=== PATIENT | female | born 1960 | race American Indian/Alaskan Native ===

== ENCOUNTER 2019-05-21 15:35 | Emergency (ER) | payer MEDICARE ==
[2019-05-21] MEDS ORDERED: HYDROcodone/ACETAMINOPHEN 5-325 MG TAB PO ONE (16:13)
[2019-05-21] MEDS ORDERED: IBUPROFEN 800 MG TAB PO ONE (16:14)
--- NOTE | 2019-05-21 16:46 | XRay Report ---
LEFT HIP 2 VIEWS INDICATION / CLINICAL INFORMATION: pain, injury. COMPARISON: None available. FINDINGS: Detail is suboptimal due to overlying soft tissue. No definite skeletal abnormality is seen. Signer Name: Emmanuel Sutton MD FACKannan Signed: 05/21/2019 4:42 PM Workstation Name: [id number]
--- NOTE | 2019-05-21 20:07 | Cat Scan Report ---
CT pelvis wo con INDICATION / CLINICAL INFORMATION: injury, right hip pain. TECHNIQUE: Axial CT imaging of right hip/pelvis was obtained without contrast. Coronal and sagittal reformatted imaging obtained and reviewed. All CT scans at this location are performed using CT dose reduction f or ALARA by means of automated exposure control. COMPARISON: Radiographs of the right hip, 05/21/2019 FINDINGS: No evidence of pelvic fracture. More specifically, the right hip and right hemipelvis are intact. The re is mild to moderate degenerative change in both hips. No soft tissue abnormality or hemarthrosis i dentified. IMPRESSION: 1. No evidence of pelvic fracture. More specifically no evidence of right hip fracture. 2. Mild to moderate degenerative changes present in the hips bilaterally. Signer Name: Christiane Montgomery MD Signed: 05/21/2019 8:02 PM Workstation Name: [id number]
[2019-05-21 20:19] VITALS: BP 156/75
--- NOTE | 2019-05-21 20:47 | Emergency Department Report ---
ED Extremity Problem HPI - General Chief complaint: Weakness Stated complaint: R SIDE PAIN Time Seen by Provider: 05/21/19 16:12 Source: patient, EMS Mode of arrival: Ambulatory Limitations: No Limitations - History of Present Illness Initial comments: 59-year-old female presents to ED with right hip and knee pain following mechanical fall. Patient states she stepped in some kind of hole in the ground. Patient denies LOC or head injury. Denies headache. MD Complaint: extremity pain -: This afternoon Location: right, lower extremity Severity scale (0 -10): 0 Quality: aching Consistency: constant Improves with: immobilization Worsens with: weight bearing, walking Associated Symptoms: denies other symptoms. denies: chest pain, shortness of breath - Related Data Home Medications Medication Instructions Recorded Confirmed Last Taken Buprenorphine HCl [Belbuca] 450 mcg BC QPM 05/21/19 05/21/19 05/18/19 Carvedilol [Coreg] 25 mg PO TID 05/21/19 05/21/19 05/21/19 Duloxetine HCl 60 mg PO QDAY 05/21/19 05/21/19 05/21/19 Insulin NPH Human Isophane 15 unit SQ QPM 05/21/19 05/21/19 05/21/19 [HumuLIN N Kwikpen] Potassium Chloride [K-Dur] 10 meq PO QDAY 05/21/19 05/21/19 05/21/19 Pregabalin [Lyrica] 300 mg PO BID 05/21/19 05/21/19 05/21/19 Rosuvastatin Calcium [Crestor] 20 mg PO QDAY 05/21/19 05/21/19 05/21/19 Sacubitril/Valsartan [Entresto 24 1 each PO QDAY 05/21/19 05/21/19 05/21/19 - 26 mg] Spironolactone [Aldactone] 25 mg PO QDAY 05/21/19 05/21/19 05/21/19 Topiramate [Topamax] 200 mg PO BID 05/21/19 05/21/19 05/21/19 Previous Rx's Medication Instructions Recorded Last Taken Type Naproxen [Naprosyn] 500 mg PO BID #20 tablet 05/21/19 Unknown Rx traMADol [Ultram] 50 mg PO Q6HR PRN #7 tablet 05/21/19 Unknown Rx Allergies Allergy/AdvReac Type Severity Reaction Status Date / Time No Known Allergies Allergy Unverified 05/21/19 18:25 ED Review of Systems ROS: Stated complaint: R SIDE PAIN Other details as noted in HPI Comment: All other systems reviewed and negative Respiratory: denies: shortness of breath Cardiovascular: denies: chest pain Musculoskeletal: as per HPI ED Past Medical Hx - Past Medical History Hx Hypertension: Yes Hx CVA: Yes (11/29) Hx Diabetes: Yes Hx Renal Disease: No Hx Arthritis: No Hx Seizures: No Hx Asthma: No - Surgical History Hx Pacemaker: No - Social History Smoking Status: Never Smoker Substance Use Type: None - Medications Home Medications: Home Medications Medication Instructions Recorded Confirmed Last Taken Type Buprenorphine HCl [Belbuca] 450 mcg BC QPM 05/21/19 05/21/19 05/18/19 History Carvedilol [Coreg] 25 mg PO TID 05/21/19 05/21/19 05/21/19 History Duloxetine HCl 60 mg PO QDAY 05/21/19 05/21/19 05/21/19 History Insulin NPH Human Isophane 15 unit SQ QPM 05/21/19 05/21/19 05/21/19 History [HumuLIN N Kwikpen] Naproxen [Naprosyn] 500 mg PO BID #20 tablet 05/21/19 Unknown Rx Potassium Chloride [K-Dur] 10 meq PO QDAY 05/21/19 05/21/19 05/21/19 History Pregabalin [Lyrica] 300 mg PO BID 05/21/19 05/21/19 05/21/19 History Rosuvastatin Calcium [Crestor] 20 mg PO QDAY 05/21/19 05/21/19 05/21/19 History Sacubitril/Valsartan [Entresto 24 1 each PO QDAY 05/21/19 05/21/19 05/21/19 History - 26 mg] Spironolactone [Aldactone] 25 mg PO QDAY 05/21/19 05/21/19 05/21/19 History Topiramate [Topamax] 200 mg PO BID 05/21/19 05/21/19 05/21/19 History traMADol [Ultram] 50 mg PO Q6HR PRN #7 tablet 05/21/19 Unknown Rx ED Physical Exam - General Limitations: No Limitations General appearance: alert, in no apparent distress - Head Head exam: Present: atraumatic, normocephalic - Eye Eye exam: Present: normal appearance, EOMI - ENT ENT exam: Present: mucous membranes moist - Neck Neck exam: Present: normal inspection, full ROM - Respiratory Respiratory exam: Present: normal lung sounds bilaterally. Absent: respiratory distress - Cardiovascular Cardiovascular Exam: Present: regular rate, normal rhythm - GI/Abdominal GI/Abdominal exam: Present: soft. Absent: distended, tenderness - Extremities Exam Extremities exam: Present: other (tenderness to right hip; right knee ROM slightly decreased secndary to pain, no swelling or deformity; no swellinig or deformity to right ankle, ROM intact; upper extremities normal and nontender) - Neurological Exam Neurological exam: Present: alert, oriented X3, CN II-XII intact. Absent: motor sensory deficit - Psychiatric Psychiatric exam: Present: normal affect, normal mood - Skin Skin exam: Present: warm, dry, intact, normal color ED Course Vital Signs 05/21/19 05/21/19 05/21/19 15:41 17:21 20:19 Temperature 98.2 F Pulse Rate 62 87 87 Respiratory 17 19 18 Rate Blood Pressure 122/61 Blood Pressure 122/61 130/70 156/75 [Left] O2 Sat by Pulse 97 99 98 Oximetry ED Medical Decision Making - Radiology Data Radiology results: report reviewed, image reviewed - Medical Decision Making CT pelvis shows no fracture of the hip. Pain medication given, and patient feel much better. Able to stand on her own bear weight on the right leg, able to flex and extend at the knee. Ortho f/u given . Return precautions given. - Differential Diagnosis fracture, contusion Critical care attestation.: If time is entered above; I have spent that time in minutes in the direct care of this critically ill patient, excluding procedure time. ED Disposition Clinical Impression: Fall, Contusion of right hip, Contusion of right knee Disposition: TO HOME OR SELFCARE Is pt being admited?: No Condition: Stable Instructions: Contusion in Adults (ED) Prescriptions: Naproxen [Naprosyn] 500 mg PO BID #20 tablet traMADol [Ultram] 50 mg PO Q6HR PRN #7 tablet PRN Reason: Pain Referrals: PRIMARY CARE, [Primary Care Provider] - 3-5 Days GUME LINO MD [Staff Physician] - 3-5 Days Time of Disposition: 20:47
== END 2019-05-21 21:43 | disposition home or self-care (01) ==
LOC: ED 15:35
DX: S70.01XA Contusion of right hip, initial encounter (principal); S80.01XA Contusion of right knee, initial encounter; I10 Essential (primary) hypertension; E11.9 Type 2 diabetes mellitus without complications; W18.30XA Fall on same level, unspecified, initial encounter; Y93.89 Activity, other specified; Y92.89 Other specified places as the place of occurrence of the external cause; Y99.8 Other external cause status
CPT/HCPCS: 72192

== ENCOUNTER 2019-06-14 13:03 | Emergency (ER) | payer MEDICARE ==
--- NOTE | 2019-06-14 13:18 | Emergency Department Report ---
Blank Doc - Documentation Documentation: 59-year-old female berto twas sent by PCP for chest pains and SOB with radiation to right arm. This initial assessment/diagnostic orders/clinical plan/treatment(s) is/are subject to change based on patient's health status, clinical progression and re- assessment by fellow clinical providers in the ED. Further treatment and workup at subsequent clinical providers discretion. Patient/guardians urged not to elope from the ED as their condition may be serious if not clinically assessed and managed. Initial orders include: 1- Patient sent to MAIN ED for further evaluation and treatment 2- labs 3- CXR 4- EKG
--- NOTE | 2019-06-14 14:16 | XRay Report ---
CHEST 2 VIEWS INDICATION: Chest Pain. COMPARISON: No recent comparison. FINDINGS: Support devices: Pacer leads in the right heart. Heart: Mild cardiomegaly considering low lung volumes. Pulmonary vasculature: Central vascular congestion. Lungs/pleura: No acute air space or interstitial disease. No pneumothorax. No pleural effusion. Additional findings: None. IMPRESSION: 1. Cardiomegaly and pulmonary venous hypertension. 2. No pulmonary edema or pneumonia. Signer Name: Chris Vincent MD Signed: 06/14/2019 2:12 PM Workstation Name: [id number]
[2019-06-14 15:55] LABS: Basophils % (Auto) 0.6 % (0.0-1.8); Eosinophils # (Auto) 0.1 K/mm3 (0.0-0.4); Eosinophils % (Auto) 1.9 % (0.0-4.3); Hematocrit 42.8 % (30.3-42.9); Hemoglobin 13.7 gm/dl (10.1-14.3); Lymphocytes # (Auto) 1.9 K/mm3 (1.2-5.4); Lymphocytes % (Auto) 33.3 % (13.4-35.0); Mean Corpuscular HGB Conc 32 % (30-34); Mean Corpuscular Volume 84 fl (79-97); Monocytes # (Auto) 0.5 K/mm3 (0.0-0.8); Monocytes % (Auto) 8.2 % (0.0-7.3); Platelet Count 104 K/mm3 (140-440); Red Blood Count 5.08 M/mm3 (3.65-5.03); Red Cell Distribution Width 15.6 % (13.2-15.2)
[2019-06-14 16:04] LABS: INR 1.15 (0.87-1.13)
[2019-06-14 16:05] LABS: Partial Thromboplastin Time 29.2 Sec. (24.2-36.6)
[2019-06-14 16:09] LABS: Alanine Aminotransferase 20 units/L (7-56); Albumin 4.5 g/dL (3.9-5); BUN/Creatinine Ratio 15; Blood Urea Nitrogen 12 mg/dL (7-17); Hemolysis Index 24
--- NOTE | 2019-06-14 23:26 | Emergency Department Report ---
ED Chest Pain HPI - General Chief Complaint: Chest Pain Stated Complaint: CHEST PAIN Time Seen by Provider: 06/14/19 13:17 Source: patient Mode of arrival: Ambulatory Limitations: No Limitations - History of Present Illness MD Complaint: chest pain -: Gradual, days(s) (3 to 4) Pain Location: substernal Pain Radiation: none Severity scale (0 -10): 1 Quality: aching, dull Consistency: constant, now resolved (in resolve the last 2-3 hours when the emergency department) Improves With: nitroglycerin (may improve with nitroglycerin patient is not sure if she took some old nitroglycerin thinks that that may have provided her some relief but is not certain) Worsens With: nothing Other Symptoms: cough - Related Data On Oral Contraceptives: No Home Medications Medication Instructions Recorded Confirmed Last Taken Buprenorphine HCl [Belbuca] 450 mcg BC QPM 05/21/19 06/14/19 05/18/19 Carvedilol [Coreg] 25 mg PO QID 05/21/19 06/14/19 05/21/19 Duloxetine HCl 60 mg PO QDAY 05/21/19 06/14/19 05/21/19 Insulin NPH Human Isophane 15 unit SQ QPM 05/21/19 06/14/19 05/21/19 [HumuLIN N Kwikpen] Potassium Chloride [K-Dur] 10 meq PO QDAY 05/21/19 06/14/19 05/21/19 Pregabalin [Lyrica] 300 mg PO BID 05/21/19 06/14/19 05/21/19 Rosuvastatin Calcium [Crestor] 20 mg PO QDAY 05/21/19 06/14/19 05/21/19 Spironolactone [Aldactone] 25 mg PO QDAY 05/21/19 06/14/19 05/21/19 Topiramate [Topamax] 200 mg PO BID 05/21/19 06/14/19 05/21/19 Clopidogrel [Plavix] 75 mg PO QDAY 06/14/19 06/14/19 Unknown Dapagliflozin Propanediol [Farxiga] 10 mg PO DAILY 06/14/19 06/14/19 Unknown Dexlansoprazole [Dexilant] 60 mg PO QDAY 06/14/19 06/14/19 Unknown Furosemide [Lasix TAB] 40 mg PO QDAY 06/14/19 06/14/19 Unknown Nortriptyline HCl 50 mg PO BID 06/14/19 06/14/19 Unknown Sacubitril/Valsartan [Entresto 24 1 tab PO DAILY 06/14/19 06/14/19 Unknown - 26 mg] glipiZIDE [Glucotrol] 10 mg PO QDAY 06/14/19 06/14/19 Unknown Allergies Allergy/AdvReac Type Severity Reaction Status Date / Time No Known Allergies Allergy Unverified 05/21/19 18:25 Heart Score - HEART Score History: Moderately suspicious EKG: Normal Age: 45-65 Risk factors: 1-2 risk factors Troponin: < normal limit HEART Score: 3 ED Review of Systems ROS: Stated complaint: CHEST PAIN Other details as noted in HPI Comment: All other systems reviewed and negative ED Past Medical Hx - Past Medical History Previous Medical History?: Yes Hx Hypertension: Yes Hx CVA: Yes (11/29) Hx Diabetes: Yes Hx Renal Disease: No Hx Arthritis: No Hx Seizures: No Hx Asthma: No - Surgical History Past Surgical History?: Yes Hx Pacemaker: No Additional Surgical History: AICD. cardiac stents - Social History Smoking Status: Never Smoker Substance Use Type: None - Medications Home Medications: Home Medications Medication Instructions Recorded Confirmed Last Taken Type Buprenorphine HCl [Belbuca] 450 mcg BC QPM 05/21/19 06/14/19 05/18/19 History Carvedilol [Coreg] 25 mg PO QID 05/21/19 06/14/19 05/21/19 History Duloxetine HCl 60 mg PO QDAY 05/21/19 06/14/19 05/21/19 History Insulin NPH Human Isophane 15 unit SQ QPM 05/21/19 06/14/19 05/21/19 History [HumuLIN N Kwikpen] Potassium Chloride [K-Dur] 10 meq PO QDAY 05/21/19 06/14/19 05/21/19 History Pregabalin [Lyrica] 300 mg PO BID 05/21/19 06/14/19 05/21/19 History Rosuvastatin Calcium [Crestor] 20 mg PO QDAY 05/21/19 06/14/19 05/21/19 History Spironolactone [Aldactone] 25 mg PO QDAY 05/21/19 06/14/19 05/21/19 History Topiramate [Topamax] 200 mg PO BID 05/21/19 06/14/19 05/21/19 History Clopidogrel [Plavix] 75 mg PO QDAY 06/14/19 06/14/19 Unknown History Dapagliflozin Propanediol [Farxiga] 10 mg PO DAILY 06/14/19 06/14/19 Unknown History Dexlansoprazole [Dexilant] 60 mg PO QDAY 06/14/19 06/14/19 Unknown History Furosemide [Lasix TAB] 40 mg PO QDAY 06/14/19 06/14/19 Unknown History Nortriptyline HCl 50 mg PO BID 06/14/19 06/14/19 Unknown History Sacubitril/Valsartan [Entresto 24 1 tab PO DAILY 06/14/19 06/14/19 Unknown History - 26 mg] glipiZIDE [Glucotrol] 10 mg PO QDAY 06/14/19 06/14/19 Unknown History ED Physical Exam - General Limitations: No Limitations General appearance: alert, in no apparent distress - Head Head exam: Present: atraumatic, normocephalic - Eye Eye exam: Present: normal appearance Pupils: Present: normal accommodation - ENT ENT exam: Present: normal exam, normal orophraynx, mucous membranes moist - Neck Neck exam: Present: normal inspection - Respiratory Respiratory exam: Present: normal lung sounds bilaterally. Absent: respiratory distress, wheezes, rales, chest wall tenderness, accessory muscle use - Cardiovascular Cardiovascular Exam: Present: regular rate, normal rhythm. Absent: bradycardia, tachycardia, systolic murmur, diastolic murmur, rubs, gallop - GI/Abdominal GI/Abdominal exam: Present: soft, normal bowel sounds - Extremities Exam Extremities exam: Present: normal inspection - Back Exam Back exam: Present: normal inspection - Neurological Exam Neurological exam: Present: alert, oriented X3 - Psychiatric Psychiatric exam: Present: normal affect, normal mood - Skin Skin exam: Present: warm, dry, intact, normal color. Absent: rash ED Course Vital Signs 06/14/19 06/14/19 06/14/19 13:18 13:20 22:00 Temperature 97.9 F Pulse Rate 92 H 90 96 H Respiratory 20 16 Rate Blood Pressure 98/57 118/74 Blood Pressure 95/57 [Right] O2 Sat by Pulse 97 98 Oximetry 06/14/19 23:00 Temperature Pulse Rate 101 H Respiratory 15 Rate Blood Pressure 127/71 Blood Pressure [Right] O2 Sat by Pulse 99 Oximetry JAIME score - Jaime Score Age > 65: (0) No Aspirin use within the Past 7 Days: (0) No 3 or more CAD Risk Factors: (0) No 2 or more Angina events in past 24 hrs: (0) No Known CAD with more than 50% Stenosis: (1) Yes Elevated Cardiac Markers: (0) No ST Deviation Greater than 0.5mm: (0) No JAIME Score: 1 ED Medical Decision Making - Lab Data Result diagrams: 06/14/19 15:17 06/14/19 15:17 - EKG Data EKG shows normal: sinus rhythm Rate: normal - EKG Data When compared to previous EKG there are: no significant change Interpretation: LVH - Radiology Data Radiology results: report reviewed [facility] [address] [place] [address] XRay Report Signed Patient: NORMA AGGARWAL MR#: [id number] : 1960 Acct:[id number] Age/Sex: 59 / F ADM Date: 06/14/19 Loc: ED Attending Dr: Ordering Physician: WALDO MACHADO NP Date of Service: 06/14/19 Procedure(s): XR chest routine 2V Accession Number(s): [id number] cc: WALDO MACHADO NP Fluoro Time In Minutes: CHEST 2 VIEWS INDICATION: Chest Pain. COMPARISON: No recent comparison. FINDINGS: Support devices: Pacer leads in the right heart. Heart: Mild cardiomegaly considering low lung volumes. Pulmonary vasculature: Central vascular congestion. Lungs/pleura: No acute air space or interstitial disease. No pneumothorax. No pleural effusion. Additional findings: None. IMPRESSION: 1. Cardiomegaly and pulmonary venous hypertension. 2. No pulmonary edema or pneumonia. Signer Name: Henrry Mercado MD Signed: 06/14/2019 2:12 PM Workstation Name: [id number] Transcribed By: REF Dictated By: HENRRY MERCADO MD Electronically Authenticated By: HENRRY MERCADO MD Signed Date/Time: 06/14/19 1412 - Medical Decision Making 59-year-old Afro[place] Citizen female with a known past medical history hypertension and diabetes as well as cardiovascular stents that were placed in [address] [facility]. She reportedly emergency of chest pain about 3-4 days ago which occurred off and on for matter of minutes but has resolved the last 3 hours while in the emergency department. She is asymptomatic no acute distress or sentences she is ambulatory without complications or reemergence of chest pain her vital signs are stable and her EKG is not consistent with an ST cyst segment changes to indicate a cardiovascular event discussed the findings with the emergency department and she advised that she is able to follow with her card iologist within the next week for reevaluation in the form of exercise stress test and likely a cardiac catheterization to reevaluate his stents but she is pain-free no acute distress no shortness of breath and is comfortable with him discharged home for coronary vascular follow-up. Patient was discussed with the attending Dr. Sweet Critical care attestation.: If time is entered above; I have spent that time in minutes in the direct care of this critically ill patient, excluding procedure time. ED Disposition Clinical Impression: Chest pain Disposition: DC-01 TO HOME OR SELFCARE Is pt being admited?: No Does the pt Need Aspirin: No Condition: Stable Instructions: Chest Pain (ED), Angina (ED) Additional Instructions: Please be sure to follow up with her yeast maker Dr. Rocael Jalloh for reevaluation and likely need to obtain stress test and cardiovascularcath Referrals: ROCAEL JALLOH MD [Referring] - 2-3 Days
[2019-06-14 23:29] LABS: Bilirubin,Urine NEG (Negative); Blood,Urine SM (Negative); Color,Urine Yellow (Yellow); Mucus,Urine FEW /HPF; Protein,Urine <15 mg/dL mg/dL (Negative)
[2019-06-15 00:30] VITALS: BP 130/80
== END 2019-06-15 00:10 | disposition home or self-care (01) ==
LOC: ED 13:03
DX: R07.2 Precordial pain (principal); I10 Essential (primary) hypertension; E11.9 Type 2 diabetes mellitus without complications; Z79.899 Other long term (current) drug therapy; Z86.73 Personal history of transient ischemic attack (TIA), and cerebral infarction without residual deficits; Z79.4 Long term (current) use of insulin; Z95.1 Presence of aortocoronary bypass graft
CPT/HCPCS: 36415; 71046; 80053; 81001; 84484; 85025; 85610; 85730; 87086; 93005; 93010; 99284